=== PATIENT | male | born 1950 ===

== ENCOUNTER → 2017-04-10 | Outpatient (CLI) | payer OTHER ==
[2017-04-10 17:04] LABS: HEMATOCRIT 41.5 % (38.2-49.6); HEMOGLOBIN 13.6 g/dL (14.0-18.0); LYMPHOCYTES # (AUTO) 0.4 (1.0-3.2); LYMPHOCYTES % 8.1 % (18.0-39.1); MEAN CORPUSCULAR HEMOGLOBIN 33.3 pg (28-32); MEAN CORPUSCULAR HGB CONC 32.8 g/dL (31-35); MEAN CORPUSCULAR VOLUME 101.7 fL (81-99); MONOCYTES # (AUTO) 0.2 (0.2-0.8); MONOCYTES % 4.1 % (4.4-11.3); NEUTROPHILS # (AUTO) 3.8 (2.1-6.9); NEUTROPHILS % 87.3 % (38.7-80.0); PLATELET COUNT 155 x10e3/uL (140-360); RED BLOOD COUNT 4.08 x10e6/uL (4.3-5.7)
[2017-04-10 17:05] LABS: ANION GAP 13.8 mmol/L (8-16); BLOOD UREA NITROGEN 9 mg/dL (7-26); BUN/CREATININE RATIO 13 (6-25); CALCIUM 8.9 mg/dL (8.4-10.2); CARBON DIOXIDE 30 mmol/L (22-29); CHLORIDE 97 mmol/L (98-107); CREATININE, SERUM 0.68 mg/dL (0.72-1.25); EST GLOMERULAR FILTRATION RATE > 60 ML/MIN (60-); GLUCOSE 111 mg/dL (74-118); POTASSIUM 3.8 mmol/L (3.5-5.1); SODIUM 137 mmol/L (136-145)
== END ==
LOC: NPA 14:56
DX: Z02.89 Encounter for other administrative examinations (principal)
CPT/HCPCS: 36415; 80048; 85025; 87040; 87071; 87186; 87205